=== PATIENT | female | born 1975 | race Caucasian/White ===

== ENCOUNTER 2020-10-18 19:37 | Emergency (ER) | payer OTHER ==
[2020-10-18 20:16] LABS: HEMOGLOBIN 10.5 gm/dl (12.3-15.3); RED BLOOD COUNT 4.47 M/UL (4.00-5.10); WHITE BLOOD COUNT 3.3 K/UL (4.5-11.0)
[2020-10-18 20:31] LABS: BUN/CREATININE RATIO 11 (0-10)
[2020-10-18] MEDS ORDERED: LASIX TAB 20 MG20 MG GT (23:01)
[2020-10-18] MEDS ORDERED: SPIRONOLACTONE50 MG PO (23:01)
[2020-10-18] MEDS ORDERED: BMP Blood Test (23:03)
[2020-10-19 01:11] LABS: BODY FLUID SOURCE ABDOMINAL; MONONUCLEAR CELLS 95.6 %; POLYMORPHONUCLEAR 4.4 %; RBC (AUTOMATED) 1800 10^6; WBC (AUTOMATED) 203 10^3
== END 2020-10-18 23:30 | disposition home or self-care (01) ==
LOC: ER1 19:37
PROVIDERS: Family Medicine
DX: R18.8 Other ascites (principal); Z86.19 Personal history of other infectious and parasitic diseases
CPT/HCPCS: 71045; 80053; 82150; 82945; 83605; 83690; 85025; 85610; 87070; 87205; 89051; 96374; 99284; P9047

== ENCOUNTER 2020-12-21 16:52 | Emergency (ER) | payer OTHER ==
[~2020-12-21 16:52] MED LIST: BMP Blood Test; LASIX TAB 20 MG20 MG GT; SPIRONOLACTONE50 MG PO
[2020-12-21 17:54] LABS: RED BLOOD COUNT 4.35 M/UL (4.00-5.10); WHITE BLOOD COUNT 4.1 K/UL (4.5-11.0)
[2020-12-21 18:11] LABS: BUN/CREATININE RATIO 19 (0-10)
[2020-12-21] MEDS ORDERED: ALDACTONE100 MG PO (21:45)
[2020-12-21] MEDS ORDERED: LASIX 40 MG TAB40 MG PO (21:45)
[2020-12-22 14:16] LABS: TOTAL PROTEIN, BODY FLUID 1.6 gm/dL
[2020-12-22 14:32] LABS: BODY FLUID SOURCE ASCITES
[2020-12-22 14:33] LABS: WBC (AUTOMATED) 110 (0-500)
[2020-12-22 14:34] LABS: MONONUCLEAR CELLS 85.5 (75-100); POLYMORPHONUCLEAR % 14.5 (0-25); RBC (AUTOMATED) 600 (0-100000)
== END 2020-12-22 00:01 | disposition home or self-care (01) ==
LOC: ER1 16:52
PROVIDERS: Family Medicine; Physician Assistant
DX: R18.8 Other ascites (principal); F17.200 Nicotine dependence, unspecified, uncomplicated; Z88.8 Allergy status to other drugs, medicaments and biological substances
CPT/HCPCS: 71045; 80053; 82140; 82150; 82945; 83615; 83690; 84157; 85025; 85610; 85730; 87070; 87205; 89051; 96365; 96375; 99284; J2270; J2405; P9047

== ENCOUNTER 2020-12-30 14:13 | Emergency (ER) | payer OTHER ==
[~2020-12-30 14:13] MED LIST changes: +ALDACTONE100 MG PO; +LASIX 40 MG TAB40 MG PO
[2020-12-30 15:38] LABS: BUN/CREATININE RATIO 22 (0-10)
[2020-12-30 16:08] LABS: RED BLOOD COUNT 4.98 M/UL (4.00-5.10); WHITE BLOOD COUNT 5.1 K/UL (4.5-11.0)
[2020-12-31] MEDS ORDERED: LASIX 40 MG TAB40 MG PO (01:57)
[2020-12-31] MEDS ORDERED: ALDACTONE100 MG PO (01:57)
[2020-12-31 03:54] LABS: BODY FLUID SOURCE PLEURAL; RBC (AUTOMATED) 300 (0-100000); WBC (AUTOMATED) 102 (0-500)
[2020-12-31 03:55] LABS: MONONUCLEAR CELLS 87 (75-100); POLYMORPHONUCLEAR % 13 (0-25)
[2020-12-31 04:18] LABS: TOTAL PROTEIN, BODY FLUID 1.4 gm/dL
== END 2020-12-31 02:45 | disposition home or self-care (01) ==
LOC: ER1 14:13
PROVIDERS: Family Medicine; Physician Assistant
DX: R10.84 Generalized abdominal pain (principal); F17.200 Nicotine dependence, unspecified, uncomplicated; Y08.89XA Assault by other specified means, initial encounter; Z88.8 Allergy status to other drugs, medicaments and biological substances
CPT/HCPCS: 80053; 81001; 83605; 84157; 85025; 85610; 87040; 87070; 87205; 89051; 96374; 99284; J2270; J2405; P9047

== ENCOUNTER 2021-03-11 16:11 | Emergency (ER) | payer OTHER | END 2021-03-11 19:15 | disposition home or self-care (01) | LOC: ER1 16:11 | DX: R18.8 Other ascites (principal); K74.60 Unspecified cirrhosis of liver; F17.200 Nicotine dependence, unspecified, uncomplicated; Z88.8 Allergy status to other drugs, medicaments and biological substances | CPT/HCPCS: 96374; 99283; P9047 ==

== ENCOUNTER 2021-03-27 10:33 | Emergency (ER) | payer OTHER ==
[2021-03-27 11:41] LABS: RED BLOOD COUNT 4.22 M/UL (4.00-5.10); WHITE BLOOD COUNT 2.6 K/UL (4.5-11.0)
[2021-03-27 12:44] LABS: BUN/CREATININE RATIO 19 (0-10)
== END 2021-03-27 17:00 | disposition home or self-care (01) ==
LOC: ER1 10:33
PROVIDERS: Student in an Organized Health Care Education/Training Program
DX: U07.1 COVID-19 (principal); K74.60 Unspecified cirrhosis of liver; R18.8 Other ascites; F17.200 Nicotine dependence, unspecified, uncomplicated; Z86.19 Personal history of other infectious and parasitic diseases
CPT/HCPCS: 80053; 85025; 85610; 93005; 99284; U0002